=== PATIENT | male | born 1970 | race Two or more races ===

== ENCOUNTER 2020-12-07 18:55 | Emergency (ER) | payer SELFPAY ==
[~2020-12-07] VITALS: Ht 167.6 cm; Wt 54.9 kg
[2020-12-07 18:55] VITALS: BP 132/99
--- NOTE | 2020-12-07 18:55 | NUR ---
BIBA TAKEN TO BED #5
--- NOTE | 2020-12-07 19:20 | NUR ---
DR. STARKS AT BEDSIDE FOR EVALUATION
--- NOTE | 2020-12-07 19:34 | NUR ---
[employer]PRE[employer] SERVICES USED; ID # [id number]. PT SPOKE WITH CARLOS MANUEL AND HERBERT BARNEY.
--- NOTE | 2020-12-07 19:44 | NUR ---
PT PROVIDED WARM BLANKET, FOOD AND BEVERAGE.
[2020-12-07] MEDS ORDERED: ACETAMINOPHEN 325 MG TAB PO ONE (19:45)
[2020-12-07] MEDS ORDERED: ONDANSETRON 4 MG ODT PO ONE (19:45)
[2020-12-07 19:56] VITALS: BP 142/97
--- NOTE | 2020-12-07 20:14 | NUR ---
CALLED LAB TO F/U WITH BLOOD DRAW. WILL BE SENDING TECH CAMMIE.
[2020-12-07 21:20] LABS: ANION GAP 16.2 (8-16); CARBON DIOXIDE 25.4 mmol/L (21-32); POTASSIUM 3.6 mmol/L (3.5-5.1)
--- NOTE | 2020-12-07 21:31 | NUR ---
Patient appears to be resting comfortably in bed. Vital Signs within normal limits. Respirations even and unlabored, VISUAL RISE AND FALL OF CHEST.
[2020-12-07] MEDS ORDERED: ONDA-24 SL (22:01)
--- NOTE | 2020-12-07 22:16 | NUR ---
SPOKE WITH NOÉ, INTERPRETOR ID [id number]; PT PROVIDED PHONE NUMBER TO WORK OFFICE [phone]. WILL ATTEMPT TO CALL.
--- NOTE | 2020-12-08 01:28 | NUR ---
Patient discharged with v/s stable. Written and verbal after care instructions given and explained. Patient alert, oriented and verbalized understanding of instructions. Ambulatory with steady gait. All questions addressed prior to discharge. ID band removed. Patient advised to follow up with PMD. Rx of ZOFRAN given. Patient educated on indication of medication including possible reaction and side effects. Opportunity to ask questions provided and answered. PT PROVIDED BUS PASS. PT ALERT AND ORIENTED. PROVIDED FOOD AND DRINK, ALONG WITH SOCKS.
== END 2020-12-08 01:28 | disposition home or self-care (01) ==
LOC: MED 18:55
DX: F10.129 Alcohol abuse with intoxication, unspecified (principal); I10 Essential (primary) hypertension; Z79.899 Other long term (current) drug therapy; Y90.8 Blood alcohol level of 240 mg/100 ml or more
CPT/HCPCS: 36415; 80048; 99283; G0482; Q0162

== ENCOUNTER 2020-12-08 04:44 | Emergency (ER) | payer SELFPAY ==
[~2020-12-08] VITALS: Ht 170.2 cm; Wt 68.0 kg
[~2020-12-08 04:44] MED LIST: ONDA-24 SL
--- NOTE | 2020-12-08 04:45 | NUR ---
BIBA TO BED 1 WITH C/O LOW BACK PAIN. PT WAS DISCHARGED FROM ER EARLIER THIS EVENING WITH SIMILAR COMPLAINTS AND ETOH. UPON ARRIVAL, PT AMBULATES WITH STEADY GAIT TO BR AND AROUND THE ER. ENCOURAGED TO RETURN TO ROOM.
[2020-12-08 04:47] VITALS: BP 164/92
--- NOTE | 2020-12-08 05:00 | NUR ---
continues to wander to the bathroom repeatedly. refuses to stay in room
[2020-12-08] MEDS ORDERED: ACETAMINOPHEN 325 MG TAB PO ONE (05:20)
--- NOTE | 2020-12-08 06:16 | NUR ---
PT NO LONGER IN ROOM AND IS NOT IN THE BATHROOM. PT HAS ELOPED
== END 2020-12-08 06:16 | disposition left against medical advice (07) ==
LOC: MED 04:44
DX: R07.81 Pleurodynia (principal)
CPT/HCPCS: 99283